=== PATIENT | female | born 1965 | race Caucasian/White ===

== ENCOUNTER 2019-04-30 06:11 | Day surgery (SDC) | payer OTHER ==
[~2019-04-30] VITALS: Ht 154.9 cm; Wt 83.9 kg
[2019-04-30] MEDS ORDERED: fentaNYL 0.05 MG/ML VIAL ONE (07:29)
[2019-04-30] MEDS ORDERED: LIDOCAINE 2% 100 MG/5 ML UJET TP ONE (07:29)
[2019-04-30] MEDS ORDERED: fentaNYL 0.05 MG/ML VIAL IVP ONE (08:00)
== END 2019-04-30 08:45 | disposition home or self-care (01) ==
LOC: MOR 06:11 → MMU 06:26 → MOR 08:45
PROVIDERS: ATTEND Internal Medicine Gastroenterology
DX: Z12.11 Encounter for screening for malignant neoplasm of colon (principal); D12.3 Benign neoplasm of transverse colon; E66.9 Obesity, unspecified; G40.909 Epilepsy, unspecified, not intractable, without status epilepticus; G47.30 Sleep apnea, unspecified; E78.00 Pure hypercholesterolemia, unspecified; I10 Essential (primary) hypertension; F41.9 Anxiety disorder, unspecified; F32.9 Major depressive disorder, single episode, unspecified; Z88.5 Allergy status to narcotic agent; Z88.8 Allergy status to other drugs, medicaments and biological substances; Z79.899 Other long term (current) drug therapy; Z90.710 Acquired absence of both cervix and uterus; Z90.49 Acquired absence of other specified parts of digestive tract; Z95.5 Presence of coronary angioplasty implant and graft; Z98.82 Breast implant status; Z88.0 Allergy status to penicillin
CPT/HCPCS: 45380; J3010